=== PATIENT | male | born 1985 | race Caucasian/White ===

== ENCOUNTER 2018-02-17 13:21 | Emergency (ER) | payer SELFPAY ==
[~2018-02-17] VITALS: Ht 177.8 cm; Wt 104.3 kg
--- NOTE | 2018-02-17 14:28 | NUR ---
Dr Mcdonald at the bedside for MSE.
[2018-02-17 14:40] VITALS: BP 122/68
--- NOTE | 2018-02-17 14:45 | NUR ---
Patient discharged to home in stable conditon. Written and verbal after care instructions given. Patient verbalizes understanding of instructions.
== END 2018-02-17 14:46 | disposition home or self-care (01) ==
LOC: ER 13:21
DX: J68.9 Unspecified respiratory condition due to chemicals, gases, fumes and vapors (principal); B48.8 Other specified mycoses
CPT/HCPCS: 99283; A4663